=== PATIENT | female | born 1990 | race Caucasian/White ===

== ENCOUNTER → 2016-10-06 | Outpatient (CLI) | payer OTHER ==
[~2016-10-06] MED LIST: BUTA1CAP17 PO; FERR1TAB13 PO; PANT40TA PO; PRENTAB65 PO
== END | disposition home or self-care (01) ==
LOC: C.PATHSPEC 11:05
PROVIDERS: ATTEND Obstetrics & Gynecology
DX: N90.89 Other specified noninflammatory disorders of vulva and perineum (principal)

== ENCOUNTER → 2016-12-07 | Outpatient (CLI) | payer OTHER ==
[2016-12-07 12:20] LABS: COMPLETE YES; EOS % 0.8 %; HEMATOCRIT 39.6 % (37-47); IG% 0.2 %; LYMPH % 35.4 %; LYMPH ABS # 1.82 K/uL (1.2-3.4); MEAN CELL VOLUME 90.8 fL (80-100); MEAN CORPUSCULAR HEMOGLOBIN 32.3 pg (25-34); MEAN CORPUSCULAR HGB CONC 35.6 g/dl (32-36); MEAN PLATELET VOLUME 9.8 fL (7.4-10.4); MONO % 7.2 %; NEUT % 56.4 %; PLATELET COUNT 222 K/uL (130-400); RED BLOOD COUNT 4.36 M/uL (4.2-5.4); WHITE BLOOD COUNT 5.14 K/uL (4.8-10.8)
[2016-12-07 12:51] LABS: CHOLESTEROL/HDL RATIO 2.7
== END | disposition home or self-care (01) ==
LOC: C.LAB1850 11:20
PROVIDERS: ATTEND Family Medicine
DX: Z13.1 Encounter for screening for diabetes mellitus (principal); Z13.220 Encounter for screening for lipoid disorders; Z13.0 Encounter for screening for diseases of the blood and blood-forming organs and certain disorders involving the immune mechanism

== ENCOUNTER → 2017-08-16 | Outpatient (CLI) | payer OTHER | END | disposition home or self-care (01) | LOC: C.PAPS 09:43 | PROVIDERS: ATTEND Obstetrics & Gynecology | DX: Z12.4 Encounter for screening for malignant neoplasm of cervix (principal) ==

== ENCOUNTER → 2018-01-21 | Outpatient (CLI) | payer OTHER ==
[~2018-01-21] MED LIST changes: +OPTIRAY 320 IV PRN; +RANI150T3 PO; +VERA1TAB PO
--- NOTE | 2018-01-21 14:34 | DIAGNOSTIC IMAGING REPORT ---
(CHEST FOR PE) ANGIO WITH CT DOSE: 287.20 mGycm HISTORY: 27 years-old Female with presents with acute atypical right-sided chest pain and pressure. TECHNIQUE: Multiple CTA images of the chest were obtained after the intravenous administration of 94 ml Optiray 320. Coronal and sagittal MIPS were obtained from the axial data set and were submitted for review. A dose lowering technique was utilized adhering to the principles of ALARA. COMPARISON: Chest radiograph 03/11/2012. FINDINGS: CTA: The heart is normal in size without pericardial effusion. Thoracic aorta is normal in both course and caliber without aneurysm or dissection. The imaged great vessels appear patent. The pulmonary arterial tree is opacified to the level of the proximal subsegmental branches and demonstrates no focal filling defects to suggest pulmonary thromboembolic disease. CT CHEST: Homogeneous morphology of the thyroid. Mild residual thymic tissue about the anterior mediastinum. Mildly prominent AP window, paratracheal and right hilar lymph nodes are seen measuring up to 7 mm. No definite pathologically enlarged lymph nodes are identified. Trace left pleural effusion. No pneumothorax. There are numerable scattered pulmonary nodules throughout all segments of the lungs bilaterally measuring up to 2-4 mm are also noted along the fissures bilaterally. Nodules are seen predominantly within a bronchovascular and perilymphatic distribution. No lobar airspace consolidation. Central airways appear patent. Imaged upper abdominal structures are within normal limits. Breast parenchyma and soft tissues are within normal limits. Bones appear to be intact. Dextroscoliosis about the midthoracic spine. IMPRESSION: 1. No acute aortic pathology or evidence of pulmonary thromboembolic disease. 2. Innumerable bilateral pulmonary nodules measuring 2-4 mm throughout all segments of the lungs bilaterally are noted predominantly within a bronchovascular/perilymphatic distribution. Differential considerations would include sarcoidosis which is favored with less likely differential considerations including lymphocytic interstitial pneumonia among other infectious or inflammatory etiologies. 3. Mildly prominent hilar, AP window and subcarinal lymph nodes. The above report was generated using voice recognition software. It may contain grammatical, syntax or spelling errors. Electronically signed by: Rodney Leal M.D. 01/21/2018 2:32 PM Dictated Date/Time: 01/21/2018 2:22 PM
[2018-01-21 16:34] LABS: BASO % 0.3 %; BASO ABS # 0.02 K/uL (0-0.2); EOS % 1.8 %; EOS ABS # 0.14 K/uL (0-0.5); HEMATOCRIT 41.9 % (37-47); HEMOGLOBIN 14.1 g/dL (12.0-16.0); IG# 0.02 K/uL (0.00-0.02); LYMPH % 22.5 %; LYMPH ABS # 1.78 K/uL (1.2-3.4); MEAN CELL VOLUME 90.5 fL (80-100); MEAN CORPUSCULAR HEMOGLOBIN 30.5 pg (25-34); MEAN CORPUSCULAR HGB CONC 33.7 g/dl (32-36); MEAN PLATELET VOLUME 9.3 fL (7.4-10.4); MONO ABS # 0.63 K/uL (0.11-0.59); NEUT % 67.1 %; NEUT ABS # 5.32 K/uL (1.4-6.5); PLATELET COUNT 235 K/uL (130-400); RED CELL DISTRIBUTION WIDTH CV 12.5 % (11.5-14.5); RED CELL DISTRIBUTION WIDTH SD 41.3 fL (36.4-46.3); WHITE BLOOD COUNT 7.91 K/uL (4.8-10.8)
[2018-01-21 17:08] LABS: ALBUMIN 4.2 gm/dl (3.4-5.0); ALKALINE PHOSPHATASE 60 U/L (45-117); ALT/SGPT 19 U/L (12-78); AST/SGOT 13 U/L (15-37); BLOOD UREA NITROGEN 12 mg/dl (7-18); CALCIUM 9.3 mg/dl (8.5-10.1); CARBON DIOXIDE 29 mmol/L (21-32); CREATININE 0.71 mg/dl (0.60-1.20); GLUCOSE 85 mg/dl (70-99); POTASSIUM 3.5 mmol/L (3.5-5.1); SODIUM 135 mmol/L (136-145); TOTAL PROTEIN 8.6 gm/dl (6.4-8.2)
[2018-01-24 11:45] LABS: QUANTIF MITOGEN-NIL 7.95 IU/ML; QUANTIFERON NEGATIVE (NEGATIVE); QUANTIFERON NIL 0.08 IU/ML
[2018-01-27 00:34] LABS: ANA SCREEN TC 249X NEGATIVE (NEGATIVE); ANTI-SS-A <1.0 NEG AI (<1.0 NEG); ANTI-SS-B <1.0 NEG AI (<1.0 NEG); ANTICARDIOLIPID AB IGA <11 APL (< = 11); COMPLEMENT C4** TC 44982E 25 MG/DL (15-57); MICROSOMAL AB 1 IU/ML (<9)
== END | disposition home or self-care (01) ==
LOC: C.CTS 13:45
PROVIDERS: ATTEND Internal Medicine
DX: R91.8 Other nonspecific abnormal finding of lung field (principal); R93.8 Abnormal findings on diagnostic imaging of other specified body structures

== ENCOUNTER → 2018-01-22 | Outpatient (CLI) | payer OTHER ==
[~2018-01-22] MED LIST changes: -OPTIRAY 320 IV PRN
== END | disposition home or self-care (01) ==
LOC: C.LAB 12:34
PROVIDERS: ATTEND Internal Medicine
DX: R93.8 Abnormal findings on diagnostic imaging of other specified body structures (principal)

== ENCOUNTER → 2018-01-27 | Day surgery (SDC) | payer OTHER ==
--- NOTE | 2018-01-26 16:14 | History and Physical ---
History & Physical Date of Service Jan 26, 2018. History & Physical 27-year-old female here for bronchoscopic evaluation of abnormal CT imaging: The week prior to this evaluation the patient woke up on a morning with notable pleuritic chest pain that was radiating to her right neck/apices. At that time she called her PCP and a CT angiogram of the chest was performed. No pulmonary emboli were noted but the patient did have diffuse small ground- glass nodules throughout all lobes as well as a [id number] lymph node/between the takeoff of the right middle lobe and right lower lobe. The patient recently moved into a new house with a hot tub and has been using the hot tub but notes she cleaned it well prior to its use. Also she had a viral type illness for 2-3 day window which was also experience by her . Overall though she has been in excellent physical condition and denies any chronic issues such as: Unintentional weight loss, fever, chills, B type symptoms, chronic cough, hemoptysis, night sweats, palpitations or classic cardiac chest pain. Patient also notes no recurrence of her previous signs and symptoms over the last 2-3 weeks. During our conversation the patient [place] but did not have any notable exposures to coal, would, hay or other known sources of pneumoconiosis. PmHx: Esophageal reflux, migraine headaches, right ovarian cyst status post cystectomy, use of oral contraceptives, former tobacco abuse, hypertension, history of scoliosis PsHx: Adenoidectomy, right ovarian cystectomy Family history: Crohn's disease, breast cancer, Graves disease, hypertension, Parkinson's disease, colon cancer, breast cancer, ovarian cancer, dementia Serum workup Total Protein 01/21/2018: > 8.6gm/dl Globulin 01/21/2018: >4.4gm/dl CRP 01/21/2018: >4.83mg/dl CTA 01/21/2018 No pulmonary emboli noted Innumerable bilateral pulmonary nodules measuring 2-4mm throughout all lung batlazar with a bronchovascular/dennis lymphatic distribution Mildly prominent hilar, AP window and subcarinal lymphadenopathy Review of Systems Constitutional: negative. Eyes: negative. ENT: Chronic postnasal drip, but as noted in HPI. Cardiovascular: negative. Respiratory: as noted in HPI. Gastrointestinal: negative. Genitourinary: negative. Musculoskeletal: negative. Integumentary: negative. Neurological: negative. Psychiatric: negative. Endocrine: negative. Hematologic/Lymphatic: negative. Active Problems 1. Abnormal chest CT (R93.8) 2. Acid reflux (K21.9) 3. Chronic migraine w/o aura w/o status migrainosus, not intractable (G43.709) 4. Contraceptive use (Z30.40) 5. Diabetes mellitus screening (Z13.1) 6. Encounter for routine gynecological examination (Z01.419) 7. Essential hypertension (I10) 8. Fever (R50.9) 9. Lipid screening (Z13.220) 10. Neoplasm of uncertain behavior of skin (D48.5) 11. Night sweats (R61) 12. Pressure in right side of chest (R07.89) 13. Shortness of breath (R06.02) Past Medical History 1. History of Abdominal pain, epigastric (R10.13) 2. History of Abdominal pain, RUQ (right upper quadrant) (R10.11) 3. Acute bronchitis (J20.9) 4. Acute conjunctivitis (H10.30) 5. History of Breast feeding status of mother (Z39.1) 6. History of Costochondritis (M94.0) 7. History of Dysuria (R30.0) 8. History of Encounter for contraceptive management (Z30.9) 9. History of Encounter for lipid screening for cardiovascular disease (Z13.220 ,Z13.6) 10. History of Encounter for visit (Z39.2) 11. History of Encounter for supervision of normal first in third trimester (Z34.03) 12. History of Eustachian tube dysfunction (H69.80) 13. History of Fatigue (R53.83) 14. History of Female pelvic pain (R10.2) 15. History of Female pelvic pain (R10.2) 16. History of acne vulgaris (Z87.2) 17. History of acute otitis media (Z86.69) 18. History of acute pharyngitis (Z87.09) 19. History of acute sinusitis (Z87.09) 20. History of breast pain 21. History of chronic sinusitis (Z87.09) 22. History of closed fracture of nasal bones (Z87.81) 23. History of contact dermatitis (Z87.2) 24. History of dyspareunia 25. History of infectious mononucleosis (Z86.19) 26. History of influenza vaccination (Z92.29) 27. History of ovarian cyst (Z87.42) 28. History of pertussis (Z86.19) 29. History of scarlet fever (Z86.19) 30. History of scoliosis (Z87.39) 31. History of sore throat (Z87.09) 32. History of urinary tract infection (Z87.440) 33. History of Infected incision (T81.4XXA) 34. History of Left foot pain (M79.672) 35. History of Myalgia and myositis 36. History of Nasal Discharge (Symptom) 37. History of Need for DTaP and Hib vaccine (Z23) 38. History of Need for Tdap vaccination (Z23) 39. History of Screening examination for venereal disease (Z11.3) 40. Screening for deficiency anemia (Z13.0) 41. History of Urinary urgency (R39.15) 42. History of Vulvar lesion (N90.89) Surgical History 1. History of Adenoidectomy 2. History of Ovarian Cystectomy Right Family History 1. Family history of Dementia 2. Family history of Hyperlipidemia 3. Family history of Crohn's disease (Z83.79) 4. Family history of Breast Cancer 5. Family history of Graves' Disease 6. Family history of Hypertension 7. Family history of Parkinson Disease 8. Family history of Colon Cancer 9. Family history of Breast Cancer 10. Family history of malignant neoplasm of breast (Z80.3) 11. 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 RaNITidine HCl - 150 MG Oral Tablet; TAKE 1 TABLET EVERY 12 HOURS DAILY Requested for: 14Dec2017; Last Rx:14Dec2017 Ordered 2. Azmgglrjzp-NSIC-Pmrtdmvn 50-325-40 MG Oral Tablet; TAKE 1 OR 2 TABLETS BY MOUTH EVERY 4 HOURS NEEDED FOR HEADACHE MAX 6 TABS/DAY; Therapy: 16Mde9122 to (Evaluate:20Nov2017) Requested for: 23Jul2017; Last Rx:[id number] Ordered 3. Verapamil HCl ER 180 MG Oral Tablet Extended Release; TAKE 1 TABLET DAILY DIRECTED; Therapy: 28Aug2016 to (Evaluate:24Feb2018) Requested for: 01Mar2017; Last Rx:01Mar2017 Ordered 4. Norethindrone 0.35 MG Oral Tablet; TAKE ONE TABLET BY MOUTH EVERY DAY; Therapy: 26Jun2016 to (Last Rx:16Aug2017) Requested for: 16Aug2017 Ordered 5. Naproxen TABS; Therapy: (Recorded:26Jun2016) to Recorded 6. Tylenol CAPS; Therapy: (Recorded:03Oct2015) to Recorded Allergies 1. Imitrex TABS 2. ALEJANDRO TABS 3. Propranolol HCl TABS Immunizations DTP/DTaP --- Series1: 28-Feb-1990; Series2: 16-May-1990; Series3: 18-Jul-1990; Series4: 27-Feb-1991; Series5: 18-Dec-1994 Hepatitis B --- Series1: 29-May-1998; Series2: 09-Jul-1998; Series3: 1998 HIB --- Series1: 16-Jun-1990; Series2: 29-Aug-1990; Series3: 27-Feb-1991 HPV --- Series1: 21-Feb-2009; Series2: 25-Apr-2009 Influenza --- Series1: 21-Mar-2011; Series2: Mar 2012; Series3: 03-Apr-2013; Series4: 03-Apr-2014; Series5: 12-Mar-2016 Meningococcal A & C --- Series1: 28-Dec-2006 MMR --- Series1: 27-Feb-1991; Series2: 18-Dec-1994 Polio --- Series1: 28-Feb-1990; Series2: 18-Jul-1990; Series3: 04-Apr-1991; Series4: 18-Dec-1994 PPD --- Series1: 18-Dec-1994; Series2: 17-Oct-2007 Td/DT --- Series1: 23-Aug-2002 Tdap --- Series1: 12-Mar-2016 Varicella --- Series1: 30-Aug-1995 Vital Signs Height: 5 ft 6 in Weight: 135 lb 4 oz BMI Calculated: 21.83 BSA Calculated: 1.69 Blood Pressure: 124 / 86, LUE, Sitting Heart Rate: 79 O2 Saturation: 98 Respiration: 14 Physical Exam Constitutional General appearance: No acute distress, well appearing and well nourished. Eyes Conjunctiva and lids: No swelling, erythema or discharge. Pupils and irises: Equal, round and reactive to light. Ears, Nose, Mouth, and Throat External inspection of ears and nose: Normal. Otoscopic examination: Tympanic membranes translucent with normal light reflex. Canals patent without erythema. Oropharynx: Normal with no erythema, edema, exudate or lesions. Pulmonary Respiratory effort: No increased work of breathing or signs of respiratory distress. Auscultation of lungs: Clear to auscultation. Cardiovascular Palpation of heart: Normal PMI, no thrills. Auscultation of heart: Normal rate and rhythm, normal S1 and S2, without murmurs. Examination of extremities for edema and/or varicosities: Normal. Abdomen Abdomen: Non-tender, no masses. Liver and spleen: No hepatomegaly or splenomegaly. Lymphatic Palpation of lymph nodes in neck: No lymphadenopathy. Musculoskeletal Gait and station: Normal. Digits and nails: Normal without clubbing or cyanosis. Inspection/palpation of joints, bones, and muscles: Normal. Skin Skin and subcutaneous tissue: Normal without rashes or lesions. Neurologic Cranial nerves: Cranial nerves 2-12 intact. Reflexes: 2+ and symmetric. Sensation: No sensory loss. Psychiatric Orientation to person, place, and time: Normal. Mood and affect: Normal.
[~2018-01-27] VITALS: Ht 167.6 cm; Wt 60.5 kg
[~2018-01-27] MED LIST changes: +DEXTROSE 5% 500ML 500 ML IV STA; +FENTANYL CITRATE INJ 50 MCG/1 ML 2 ML VIAL IV ONE; +LIDOCAINE 4% INH SOLN 4 ML BTL TOP ONE; +LIDOCAINE HCL 2% LOCAL 50ML VIAL INSTIL ONE; +LIDOCAINE VISCOUS 2% 100ML TOP ONE; +MIDAZOLAM HCL 5 MG/ML 1 ML VIAL IV ONE; +NURSING VERBAL MED ORDER ONE
[2018-01-27 08:58] VITALS: BP 122/86; PULSE 88; TEMP 37.1; O2SAT 97; Ht 167.6 cm; Wt 60.5 kg
--- NOTE | 2018-01-27 09:50 | History & Physical Bridge Note ---
H&P Re-Evaluation Bridge Note: I have examined the patient, reviewed the History & Physical and in the interval since the performance of the History & Physical I have noted the following changes of clinical significance: No changes noted
--- NOTE | 2018-01-27 09:50 | Pre Sedation Assessment ---
Pre Sedation Assessment General Date of Sedation: Jan 27, 2018. Vital Signs Past 12 Hours Date Time Temp Pulse Resp B/P (MAP) Pulse Ox O2 Delivery O2 Flow Rate FiO2 01/27/18 08:58 37.1 88 16 122/86 (98) 97 Room Air Review Cardiovascular: regular rate, rhythm, no edema, no gallop, no JVD, no murmur, normal peripheral pulses Lungs: chest non-tender, lungs clear, normal breath sounds, no respiratory distress, no accessory muscle use Pre-Sedation Airway Assessment Smoking Status: Former Smoker Hx of Sleep Apnea: No Short Thick Neck: No Thyro-mental Distance: > 3 Finger Breadths Oral Cavity: WNL Mallampati Classification: Class I ASA Classification: Class I NPO Status Date of Last Intake of Fluids: Jan 27, 2018 Time of Last Intake of Fluids: 0630 Date of Last Intake of Solids: Jan 26, 2018 Time of Last Intake of Solids: 1900 Procedure Planning Contraindications for Sedation: None Current Medications Reviewed: Yes Notes The planned sedation has been discussed with the patient. Informed Consent was obtained. I have identified the patient, determined the appropriateness of sedation and have assessed the patient immediately prior to the procedure. All medicine(s) and interventions are by my order.
--- NOTE | 2018-01-27 10:38 | Bronchoscopy Procedure Note ---
Bronchoscopy Procedure Note Procedure: Bronchoscopy, conscious sedation, radial probe, bronchial washing Consent: Obtained through the patient placed into the chart Pre-procedural diagnosis: Pulmonary nodules with hilar adenopathy Post-procedural diagnosis: Pulmonary nodules with hilar adenopathy Start time: 1011 End time: 103 Total time: 19minutes Analgesia: 2% liquid lidocaine: Via nebulizer 4% gel lidocaine: Via right naris 2% liquid lidocaine: Via bronchoscopy Sedation: Versed IV: 3mg Fentanyl IV: 75g Procedure: The Olympus video bronchoscope was used for this procedure and passed down through the right naris Right naris/posterior naris/posterior oropharynx: Diffuse erythema along with notable cobblestoning along the posterior oropharynx Glottis: Anatomically within normal limits Vocal cords: Proper abduction and abduction, anatomically within normal limits Subglottis/trachea/Lexx: Anatomically within normal limits Right bronchial tree: Right mainstem bronchus: Anatomically within normal limits Right upper lobe: Anatomically within normal limits Bronchus intermedius: Anatomically within normal limits Right middle lobe: Anatomically within normal limits Right lower lobe: Anatomically within normal limits Findings: No significant findings noted Left bronchial tree: Left mainstem bronchus: Anatomically within normal limits Left upper lobe: Anatomically within normal limits Lingula: Anatomically within normal limits Left lower lobe: Anatomically within normal limits Findings: No significant findings noted Bronchial alveolar lavage: Left lower lobe Radial probe: Performed at the secondary lexx between the right middle lobe and right lower lobe. No significant findings noted EBL: None Complications: None Follow-up: ASU
--- NOTE | 2018-01-27 10:42 | Discharge Instructions ---
Discharge Instructions Date of Service Jan 27, 2018. Admission Reason for Admission: Abnormal Chest Ct Discharge Discharge Diagnosis / Problem: Diffuse pulmonary nodules Discharge Goals Goal(s): Diagnostic testing Activity Recommendations Activity Limitations: resume your previous activity Lifting Limitations: none Driving or Machine Use: resume 1 day after discharge . Instructions / Follow-Up Instructions / Follow-Up Follow-up with the [facility] pulmonary clinic Current Hospital Diet Patient's current hospital diet: Discharge Diet Recommended Diet: Regular Diet Procedures Procedures Performed: Bronchoscopy with Bronchial Alveolar Lavage, radial probe at the secondary lexx between the right middle lobe and right lower lobe Pending Studies Studies pending at discharge: no Medical Emergencies . Who to Call and When: Medical Emergencies: If at any time you feel your situation is an emergency, please call 911 immediately. . Non-Emergent Contact Non-Emergency issues call your: Balance Wheel Screw Hole Driller Call Non-Emergent contact if: you have a fever, temperature is above 101.5 . . "Provider Documentation" section prepared by Andre Eng. .
[2018-01-27 10:50] VITALS: BP 133/96; TEMP 37.1; O2SAT 100
[2018-01-27 11:06] VITALS: BP 125/86; PULSE 75; O2SAT 99
[2018-01-27 11:24] VITALS: BP 115/81; PULSE 67; O2SAT 99
[2018-01-27 12:05] VITALS: BP 112/75; PULSE 77; O2SAT 98
[2018-01-27 12:29] VITALS: BP 119/82; PULSE 75; TEMP 36.8; O2SAT 95
== END | disposition home or self-care (01) ==
LOC: C.ACU 08:31
PROVIDERS: ATTEND Internal Medicine Critical Care Medicine
DX: R91.1 Solitary pulmonary nodule (principal); K21.9 Gastro-esophageal reflux disease without esophagitis; Z79.3 Long term (current) use of hormonal contraceptives; Z87.891 Personal history of nicotine dependence; I10 Essential (primary) hypertension

== ENCOUNTER → 2018-01-28 | Outpatient (CLI) | payer OTHER ==
[~2018-01-28] MED LIST changes: -DEXTROSE 5% 500ML 500 ML IV STA; -FENTANYL CITRATE INJ 50 MCG/1 ML 2 ML VIAL IV ONE; -FERR1TAB13 PO; -LIDOCAINE 4% INH SOLN 4 ML BTL TOP ONE; -LIDOCAINE HCL 2% LOCAL 50ML VIAL INSTIL ONE; -LIDOCAINE VISCOUS 2% 100ML TOP ONE; -MIDAZOLAM HCL 5 MG/ML 1 ML VIAL IV ONE; -NURSING VERBAL MED ORDER ONE; -PANT40TA PO; -PRENTAB65 PO
--- NOTE | 2018-01-28 11:46 | DIAGNOSTIC IMAGING REPORT ---
CHEST 2 VIEWS ROUTINE CLINICAL HISTORY: R07.9 Left sided chest [id number] pain. Dyspnea. COMPARISON STUDY: No previous studies for comparison. FINDINGS: Poorly defined parenchymal infiltrate left lung base. Lungs otherwise are clear. Diaphragms smooth. IMPRESSION: Poorly defined parenchymal infiltrate left base. The above report was generated using voice recognition software. It may contain grammatical, syntax or spelling errors. Electronically signed by: Candelario Obando M.D. 01/28/2018 11:45 AM Dictated Date/Time: 01/28/2018 11:45 AM
== END | disposition home or self-care (01) ==
LOC: C.RAD 11:10
PROVIDERS: ATTEND Internal Medicine Critical Care Medicine
DX: R07.9 Chest pain, unspecified (principal)

== ENCOUNTER 2020-03-29 07:41 | Inpatient (IN) ==
[2020-03-29] MEDS ORDERED: OXYTOCIN 30 UNITS/500 ML BAG IV PRN ×3 (08:09→21:17)
--- NOTE | 2020-03-29 08:16 | History & Physical Report ---
Date of Service March 29, 2020 Assessment & Plan (1) : Reena is a 29 y/o female currently at 37-1/7 WGA with an ANDI 04/18/20 as determined by LMP who is here for planned IOL in setting of gestational HTN. - Proceed with IOL with Pitocin protocol -- anticipate - GBS negative - Patient requesting epidural -- will consult anesthesia - -induced HTN - Regular BP checks - PIH labs ordered Diet: NPO Code: Full code (2) Gestational HTN: Admission and Anticipated Discharge Date Admission Date: March 29, 2020 History of Present Illness Primary Care Provider: Sulma Solano MD Reena is a 29 y/o female currently at 37-1/7 WGA with an ANDI 04/18/20 as determined by LMP who is here for planned IOL in setting of gestational HTN. Her was otherwise uncomplicated Denies contractions; endorses good movement; denies fluid loss; denies bloody show Had regular appointments with OB. Labs: (09/12/19) Blood type: A+ Antibody screen: neg H.1 (03/20) Hct: 38.6 (03/20) WBC: 12.4 (03/20) Plt: 232 (03/20) Rubella: immune VDRL/RPR: NR Gonorrhea: neg Chlamydia: neg HIV: neg HbSAg: neg GBS: neg SARS-CoV-2 (03/22): Not detected Other screens: cff-DNA: low risk (see scanned documents) CF: negative SMA: negative Allergies Allergy/AdvReac Type Severity Reaction Status Date / Time drospirenone Allergy Mild HTN Verified 03/29/20 09:21 ethinyl estradiol Allergy Mild HTN Verified 03/29/20 09:21 sumatriptan Allergy Mild HTN Verified 03/29/20 09:21 Imitrex TABS Allergy Mild Hypertensio Uncoded 03/29/20 09:21 n Propranolol HCl TABS Allergy Unknown Unknown Uncoded 03/29/20 09:21 ALEJANDRO TABS Allergy Unknown Unknown Uncoded 03/29/20 09:21 Home Medications Home Medications Medication Instructions Recorded Confirmed Type prenat.vits,tim,aif-slcc-iqige 1 tab PO DAILY 08/15/19 03/29/20 History aspirin 81 mg chewable tablet 81 mg PO DAILY 10/10/19 03/29/20 History ondansetron HCl 4 mg tablet 4 mg PO Q8H PRN #30 tab 12/11/19 03/29/20 Rx pantoprazole 40 mg tablet,delayed 40 mg PO DAILY #90 tab 01/10/20 03/29/20 Rx release Patient History Medical History Chronic migraine Encounter for anatomic survey GERD (gastroesophageal reflux disease) Hypertension Migraine Migraine without aura, not intractable, without status migrainosus Surgical History History of adenoidectomy History of ovarian cystectomy Family History (Updated 09/05/19 @ 14:06 by Stephany Ye) Aunt Breast cancer Grandmother (Paternal) Breast cancer Graves disease Grandfather (Paternal) Colorectal cancer Hypertension Parkinson disease Father Dementia Dyslipidemia Grandmother (Maternal) Crohn's disease Social History (Updated 09/05/19 @ 13:45 by Stephany Ye) Smoking Status: Former smoker Second Hand Exposure: No; Hx Alcohol Use: No Hx Substance Use: No Preferred Language: Filipino Communication Ability: Effective Beliefs That Will Affect Care: None marital status: marital status details: Aurelio CORONADO" Iglesia (31) [phone] Current Living Situation: Family Current Living Situation Comment: lives with spouse and daughter, 1 dog current occupational status: employed Other Information That Helps Us Care for You: No Feels Safe at Home: Yes Safety Concerns: Feels Safe At This Time Assistive Devices: None Review of Systems no fever, no chills and no sweats denies headache no dyspnea no chest pain, no dyspnea, no dyspnea at rest and no palpitations no dysuria no breast pain Physical Exam Physical Exam: General: Alert, oriented. No acute distress. Cardiac: Regular rate and rhythm, no murmurs/rubs/gallops. Respiratory: Clear to auscultation bilaterally a/p, no wheezes/rales/rhonchi. No increased work of breathing. Symmetrical chest rise. No respiratory distress. Pelvic: Dilation 2.5 cm; Effacement 75%; Station -[address] Gauthier Lower Extremities: No lower extremity edema or swelling. No deep calf pain. Mirna's negative bilaterally Results & Data ([facility]) Vital Signs (Past 12 Hours) Vital Signs Pulse BP 03/29/20 07:54 85 134/88 Supervising Physician Co-Signing Physician Notes Resident Physician Supervision Note: I interviewed and examined the patient. Discussed with Dr. Arguello and agree with findings and plan as documented in the note. Any exceptions or clarifications are listed here: +FM; -ctx, LOF, VB. No s/s pre-eclampsia, labs wnl on admission except UPC P. SVE by Dr. Gauthier, EFW 7-8lbs. Start IOL with oxytocin Documented By: Cheryl Baker MD Resident Activity Tracking Resident Involvement: Resident Care Provided Care Provided: Adult Hospital Medicine and OB Delivery
[2020-03-29 08:45] LABS: Hematocrit (blood only) 35.3 % (37-47); Hemoglobin 12.1 g/dL (12.0-16.0); Mean Corpuscular Hemoglobin 31.8 pg (25-34); Mean Corpuscular Volume 92.7 fL (80-100); Mean Platelet Volume 9.7 fL (7.4-10.4); Platelet Count 177 K/uL (130-400); RDW Standard Deviation 43.6 fL (36.4-46.3); Red Blood Count 3.81 M/uL (4.2-5.4); White Blood Count 9.27 K/uL (4.8-10.8)
[2020-03-29] MEDS: LACTATED RINGER'S 1,000 ML IV PRN ×3 (08:49→19:05)
[2020-03-29 09:16] LABS: Albumin Level 2.6 gm/dl (3.4-5.0); BUN Creatinine Ratio 15.3 (10-20); Calcium 8.8 mg/dl (8.5-10.1); Creatinine Clr Calc Pharmacy 131.3 ml/min; Est GFR (African American) 134.8; Est GFR (Non-African American) 116.3; Potassium 3.3 mmol/L (3.5-5.1)
[2020-03-29 09:19] LABS: Albumin Globulin Ratio 0.6 (0.9-2); Bilirubin,Total 0.5 mg/dl (0.2-1); Globulin 4.3 gm/dl (2.5-4.0); Total Protein 6.9 gm/dl (6.4-8.2)
[2020-03-29 09:26] LABS: Mean Corpuscular Hgb Conc 34.3 g/dL (32-36)
[2020-03-29 12:04] LABS: Protein Creatinine Ratio Urine 0.3 (0-0.2); Total Protein Urine Random 13.6 mg/dl (0-11.9)
--- NOTE | 2020-03-29 13:05 | Labor Progress Brief Note ---
Date of Service March 29, 2020 Subjective Resting comfortably. Notes contractions are a little uncomfortable but significantly painful Assessment & Plan (1) : (2) Gestational HTN: UPC 0.3, now meets criteria for pre-eclampsia w/o SF. Discussed with pt, will continue to monitor Admission and Anticipated Discharge Date Admission Date: March 29, 2020 VSS, BPs wnl Fetus cat 1 Labor - pit at 9, will recheck and arom with more consistent pattern GBS neg Epidural PRN, pt would like before AROM Physical Exam 2 Constitutional: well developed Genitourinary: OB Exam Monitor Tracing: + external FHT monitor used, + external uterine monitor used (q5min) and + category I (120/mod/+accel/-decel) Results & Data ([facility]) Vital Signs (Past 12 Hours) Vital Signs Temp Pulse Resp BP 03/29/20 12:03 97.9 F 68 20 126/78 03/29/20 10:52 68 18 127/74 03/29/20 07:54 85 134/88 03/29/20 07:52 98.8 F 85 20 134/88 Coding Level of Care Code None Diagnoses Z34.90 Gestational HTN O13.9
[2020-03-29] MEDS ORDERED: ePHEDrine sulfate 50 MG/ML AMP ONE (15:07)
[2020-03-29] MEDS ORDERED: fentaNYL citrate 100 MCG/2 ML VIAL ONE (15:07)
[2020-03-29] MEDS ORDERED: BUPIVACAINE 0.25% 30 ML VIAL ONE (15:07)
[2020-03-29] MEDS ORDERED: fentaNYL 2MCG/ML ROPIVACAINE 1.25MG/ML 100 ML BAG EPI ONE (15:07)
[2020-03-29] MEDS ORDERED: diphenhydrAMINE 50 MG/ML VIAL IV PRN (15:12)
[2020-03-29] MEDS ORDERED: fentaNYL 2MCG/ML ROPIVACAINE 1.25MG/ML 100 ML BAG EPI PRN (15:12)
[2020-03-29] MEDS ORDERED: NALOXONE HCL 1 MG in SODIUM CHLORIDE 0.9% 1000ML 1,000 ML IV PRN (15:12)
[2020-03-29] MEDS ORDERED: ePHEDrine sulfate 50 MG/ML AMP IV PRN (15:12)
[2020-03-29] MEDS ORDERED: ONDANSETRON INJ 2 MG/ML 2 ML VIAL IV PRN (15:12)
[2020-03-29] MEDS ORDERED: NALOXONE HCL 0.4 MG/1 ML VIAL/CARP IV PRN (15:12)
--- NOTE | 2020-03-29 15:14 | Anesthesiology Consultation ---
Date of Service March 29, 2020 Assessment & Plan (1) Encounter for pre-operative examination: Chart Review Chart Review: Patient NOT seen in Pre Admission Testing and Acceptable Risk for Labor Epidural Consults Requested none covid neg 03/22/2020. History Height/Weight Height: 5 ft 6 in Weight: 87.997 kg Allergies Allergy/AdvReac Type Severity Reaction Status Date / Time drospirenone Allergy Mild HTN Verified 03/29/20 09:21 ethinyl estradiol Allergy Mild HTN Verified 03/29/20 09:21 sumatriptan Allergy Mild HTN Verified 03/29/20 09:21 Imitrex TABS Allergy Mild Hypertensio Uncoded 03/29/20 09:21 n Propranolol HCl TABS Allergy Unknown Unknown Uncoded 03/29/20 09:21 ALEJANDRO TABS Allergy Unknown Unknown Uncoded 03/29/20 09:21 Medications Home Medications Medication Instructions Recorded Confirmed Last Taken prenat.vits,tim,mle-ujzb-kyamf 1 tab PO DAILY 08/15/19 03/29/20 03/28/20 20:00 aspirin 81 mg chewable tablet 81 mg PO DAILY 10/10/19 03/29/20 03/28/20 20:00 ondansetron HCl 4 mg tablet 4 mg PO Q8H PRN #30 tab 12/11/19 03/29/20 Unknown pantoprazole 40 mg tablet,delayed 40 mg PO DAILY #90 tab 01/10/20 03/29/20 Unknown release Active Medications Generic Name Dose Route Start Last Admin Trade Name Freq PRN Reason Stop Dose Admin Lactated Ringer's 1,000 mls @ 125 mls/hr 03/29/20 08:09 03/29/20 15:09 Lr IV 03/31/20 08:08 999 mls/hr .Q8H PRN Administration L&D Protocol Protocol Oxytocin 30 units in 500 mls @ 17 mls/hr 03/29/20 09:49 03/29/20 15:15 Pitocin IV 03/31/20 09:48 1.02 units/hr .Q24H PRN 17 mls/hr Labor Induction/Augmentation Titration Protocol 1.02 UNITS/HR Past Medical History Medical History Chronic migraine Encounter for anatomic survey GERD (gastroesophageal reflux disease) Hypertension Migraine Migraine without aura, not intractable, without status migrainosus Exercise / Class Metabolic Activity II 4-5 Yardwork/Stairs/Walk up hill Past Family History Family History Aunt Breast cancer Grandmother (Paternal) Breast cancer Graves disease Grandfather (Paternal) Colorectal cancer Hypertension Parkinson disease Father Dementia Dyslipidemia Grandmother (Maternal) Crohn's disease Past Surgical History Surgical History History of adenoidectomy History of ovarian cystectomy Past Anesthesia History No Hx of Anesthesia Complications and No Family Hx of Anesthesia Complications History of PONV No Hx of PONV and No Hx of Motion Sickness Social History Smoking Status: Former smoker Do You Dip or Chew Tobacco: No Hx Alcohol Use: No Hx Substance Use: No substance use type: does not use Physical Exam Vital Signs Last Vital Signs Temp 36.6 C 03/29/20 12:03 Pulse 77 03/29/20 15:37 Resp 20 03/29/20 12:03 BP 129/86 03/29/20 13:30 Pulse Ox 99 03/29/20 15:37 Testing Laboratory Results 03/29/20 08:26 03/29/20 08:26
--- NOTE | 2020-03-29 15:18 | Labor Progress Brief Note ---
Date of Service March 29, 2020 Subjective Contractions noticeable, more regular Assessment & Plan (1) : (2) Pre-eclampsia: Admission and Anticipated Discharge Date Admission Date: March 29, 2020 VSS, BPs wnl Fetus cat 1 Labor - pit at 15, continue augmentation GBS neg epidural - plan to get now so that can AROM Physical Exam Constitutional: well developed Genitourinary: Manual OB Exam: + cervical dilation 3 cm, + cervical effacement 70% and + station -2 OB Exam Monitor Tracing: + external FHT monitor used, + external uterine monitor used (q4min) and + category I (120/mod/+accel/-decel) Results & Data ([facility]) Vital Signs (Past 12 Hours) Vital Signs Temp Pulse Resp BP 03/29/20 13:30 71 129/86 03/29/20 12:03 97.9 F 68 20 126/78 03/29/20 10:52 68 18 127/74 03/29/20 07:54 85 134/88 03/29/20 07:52 98.8 F 85 20 134/88 Coding Level of Care Code None Diagnoses Z34.90 Pre-eclampsia O14.90
--- NOTE | 2020-03-29 17:01 | Labor Progress Brief Note ---
Date of Service March 29, 2020 Subjective Resting with epidural Assessment & Plan (1) : VSS, BPs wnl Fetus cat 1 Labor - pit at 17, now s/p AROM. continue augmentation GBS neg epidural in place (2) Pre-eclampsia: BPs wnl Admission and Anticipated Discharge Date Admission Date: March 29, 2020 Physical Exam Constitutional: well developed Genitourinary: Manual OB Exam: + cervical dilation (3-4), + cervical effacement 80%, + station -1 and + amniotic fluid (AROM) clear OB Exam Monitor Tracing: + external FHT monitor used, + external uterine monitor used (q3-4min) and + category I (120/mod/+accel/-decel) Results & Data ([facility]) Vital Signs (Past 12 Hours) Vital Signs Temp Pulse Resp BP Pulse Ox 03/29/20 16:52 87 97 03/29/20 16:47 86 99 03/29/20 16:46 67 115/66 03/29/20 16:42 79 98 03/29/20 16:40 68 111/65 03/29/20 16:37 75 98 03/29/20 16:36 70 113/83 03/29/20 16:32 75 98 03/29/20 16:30 68 128/73 03/29/20 16:27 81 98 03/29/20 16:26 73 120/74 03/29/20 16:22 68 97 03/29/20 16:20 71 115/69 03/29/20 16:17 69 98 03/29/20 16:15 98.8 F 67 18 119/75 03/29/20 16:12 75 99 03/29/20 16:09 70 119/72 03/29/20 16:07 75 98 03/29/20 16:05 68 119/72 03/29/20 16:02 73 98 03/29/20 16:00 69 135/68 03/29/20 15:57 71 98 03/29/20 15:54 70 124/74 03/29/20 15:52 83 132/87 99 03/29/20 15:50 80 127/77 03/29/20 15:48 71 119/79 03/29/20 15:47 74 99 03/29/20 15:46 75 120/73 03/29/20 15:44 68 126/77 03/29/20 15:42 76 124/76 100 03/29/20 15:37 77 99 03/29/20 15:36 83 91 03/29/20 15:32 77 100 03/29/20 15:27 91 H 99 03/29/20 13:30 71 129/86 03/29/20 12:03 97.9 F 68 20 126/78 03/29/20 10:52 68 18 127/74 03/29/20 07:54 85 134/88 03/29/20 07:52 98.8 F 85 20 134/88 Coding Level of Care Code None Diagnoses Z34.90 Pre-eclampsia O14.90
[2020-03-29] MEDS ORDERED: MINERAL OIL 30 ML UDC ONE (20:38)
[2020-03-29] MEDS ORDERED: BENZOCAINE 20% AER SPR 82.5 GM CAN EXT PRN (21:17)
[2020-03-29] MEDS ORDERED: SUPERCREAM 0.870% 15 GM JAR EXT PRN (21:17)
[2020-03-29] MEDS ORDERED: HYDROCORTISONE ACETATE 25 MG SUPP PR PRN (21:17)
[2020-03-29] MEDS ORDERED: bisacodyL 10 MG SUPP PR PRN (21:17)
--- NOTE | 2020-03-29 21:18 | Delivery Summary ---
Vaginal Delivery Summary Date of Service March 29, 2020 PREOPERATIVE DIAGNOSIS: 1. Single intrauterine at 37 and 1/7 weeks gestation 2. Pre-eclampsia without severe features POSTOPERATIVE DIAGNOSIS: 1. Single intrauterine at 37 and 1/7 weeks gestation 2. Pre-eclampsia without severe features 3. Delivered PROCEDURE: 1. Normal spontaneous vaginal delivery. SURGEON: Cheryl Baker MD ANESTHESIA: Epidural. ESTIMATED BLOOD LOSS: 300 mL FLUIDS: Continuous LR. URINE OUTPUT: None. COMPLICATIONS: None. CONDITION: Stable. INDICATIONS: 29 y/o at 37w1d w/ ANDI 04/18/20 by LMP presents for IOL for gHTN. No complaints on arrival. Admission HTN labs were obtained and wnl except elevated UP:C giving dx of pre-eclampsia w/o SF. Induction was begun with oxytocin. She received an epidural for pain control. Artificial rupture of membranes was performed. She then progressed to 10/100/+3 FINDINGS: A viable male infant with weight pending at time of note, with Apgars of 9 and 10 at 1 and 5 minutes respectively. SPECIMEN: Placenta. OPERATIVE REPORT: The patient progressed to 10 cm, 100% effaced and +2 station, pushed over intact perineum with anesthesia to deliver a viable male , weight and Apgars as above. Head of delivered in EVELINA position. No nuchal cord was present. Body and shoulders were delivered without difficulty. was delivered to maternal abdomen and nursing staff. Delayed cord clamping was performed for 60 seconds. Cord was clamped and cut. Cord blood was obtained. Placenta delivered spontaneously intact with 3-vessel cord. IV oxytocin and fundal massage were given for excellent hemostasis. Vagina, cervix, placenta and perineum were inspected. A second degree laceration was noted and repaired in the usual fashion with 3-0 Vicryl. Sponge and needle counts correct x2. No sponges were left behind. Mother and stable in immediate period.
--- NOTE | 2020-03-29 21:49 | Anesthesia Procedure Note ---
Date of Service March 29, 2020 Anesthesia Post Epidural Note Vital Signs Vital Signs: Temp Pulse Resp BP Pulse Ox 36.8 C 78 18 121/73 97 03/29/20 19:15 03/29/20 21:38 03/29/20 19:15 03/29/20 21:38 03/29/20 21:22 Pain Intensity Bilateral Abdomen: Pain Intensity: 9 Notes Mental Status: alert / awake / arousable and participated in evaluation Patient Amnestic to Procedure: No Nausea / Vomiting: adequately controlled Pain: adequately controlled Airway Patency, RR, SpO2: stable & adequate BP & HR: stable & adequate Hydration State: stable & adequate Neuraxial Anesthesia: was administered and sensory block is resolving Anesthetic Complications: no major complications apparent and Pt Satisfied with anesthetic care Epidural: Removed without complications and With tip intact
[2020-03-30] MEDS: IBUPROFEN 600 MG TAB PO PRN ×4 (01:20→23:47)
--- NOTE | 2020-03-30 05:53 | Obstetrical Progress Note ---
Date of Service <Michael Arguello MD - Last Filed: 03/30/20 07:20> March 30, 2020 Assessment & Plan <Michael Arguello MD - Last Filed: 03/30/20 07:20> (1) Spontaneous vaginal delivery: Reena is a 29 y/o female who is now PPD #1 following planned IOL for gHTN (subsequently found to meet criteria for preeclampsia w/o severe features while here based on urine protein/Cr of 0.3) at 37-1/7 weeks. Preeclampsia without Severe Features - Patient previously defined as gestational HTN throughout her course, subsequently found to meet criteria for preeclampsia w/o severe features while here based on urine protein/creatinine of 0.3 - PIH labs obtained at admission otherwise WNL - BPs have remained stable in the 110-130/70-80 range while here - Continue to monitor BPs while here - Will require 1 week f/u / BP check -- clerical staff messaged - Feels well today. Eating well, voiding well, ambulating well. - Pain well controlled with ibuprofen 600mg Q4H PRN. - Routine care -- promote OOB, ambulation, diet progression as tolerated - After discharge will have [address] Olivia Dorantes: Anticipate staying through [facility] for BP monitoring in setting - anticipate d/c tomorrow Code: Full code Subjective <Mihcael Arguello MD - Last Filed: 03/30/20 07:20> Reena is a 29 y/o female who is now PPD #1 following planned IOL for gHTN (subsequently found to meet criteria for preeclampsia w/o severe features while here based on urine protein/Cr of 0.3) at 37-1/7 weeks. Reports feeling well overall this morning. Endorses some abdominal cramping with pain well managed on analgesics. Voiding without difficulty. Tolerating meals well and able to ambulate some. Endorses passing gas but not yet BMs. Some persistent lochia with some improvement this morning. Bottle feeding well. Review of Systems Denies fever, chills, sweats Denies shortness of breath, difficulty breathing, chest pain, palpitations, chest pressure. Denies breast pain. Denies dysuria. Denies headache or changes in vision. Physical Exam <Michael Arguello MD - Last Filed: 03/30/20 07:20> General: Alert, oriented. No acute distress. Cardiac: Regular rate and rhythm, no murmurs/rubs/gallops. Respiratory: Clear to auscultation bilaterally a/p, no wheezes/rales/rhonchi. No increased work of breathing. Symmetrical chest rise. No respiratory distress. Abdomen: Soft, nontender, nondistended. Bowel sounds present. Uterus: Uterine fundus firm, palpable 2 cm below umbilicus. Lower Extremities: No lower extremity edema or swelling. No deep calf pain. Mirna's negative bilaterally. Results & Data ([facility]) <Michael Arguello MD - Last Filed: 03/30/20 07:20> Vital Signs (Past 12 Hours) Vital Signs Temp Pulse Pulse Resp BP BP Pulse Ox 03/30/20 04:15 36.5 C 61 18 122/83 03/29/20 23:30 36.6 C 74 18 137/84 03/29/20 23:07 86 116/71 03/29/20 22:52 79 114/66 03/29/20 22:37 78 115/73 03/29/20 22:22 80 119/77 03/29/20 22:07 81 122/79 03/29/20 21:53 83 119/79 03/29/20 21:38 78 121/73 03/29/20 21:23 78 139/89 03/29/20 21:22 79 97 03/29/20 21:17 67 97 03/29/20 21:12 68 97 03/29/20 21:07 69 122/82 97 03/29/20 21:02 75 98 03/29/20 20:57 71 98 03/29/20 20:52 74 97 03/29/20 20:47 76 120/56 L 98 03/29/20 20:42 79 98 03/29/20 20:37 80 100 03/29/20 20:33 80 123/76 03/29/20 20:32 83 99 03/29/20 20:27 66 99 03/29/20 20:22 83 99 03/29/20 20:17 71 131/86 98 03/29/20 20:12 68 98 03/29/20 20:07 76 99 03/29/20 20:02 71 117/74 96 03/29/20 19:57 68 98 03/29/20 19:52 69 96 03/29/20 19:47 68 117/73 96 03/29/20 19:42 71 97 03/29/20 19:37 70 98 03/29/20 19:33 64 119/73 03/29/20 19:32 67 97 03/29/20 19:27 66 95 03/29/20 19:22 71 96 03/29/20 19:18 67 127/79 03/29/20 19:17 67 97 03/29/20 19:15 36.8 C 18 03/29/20 19:12 65 97 03/29/20 19:07 69 98 03/29/20 19:03 73 121/71 03/29/20 19:02 78 98 03/29/20 18:57 70 98 03/29/20 18:52 70 97 03/29/20 18:48 68 111/71 03/29/20 18:47 68 96 03/29/20 18:42 70 97 03/29/20 18:37 72 97 03/29/20 18:32 70 128/79 98 03/29/20 18:27 78 97 03/29/20 18:22 81 98 03/29/20 18:17 67 115/72 96 03/29/20 18:12 72 97 03/29/20 18:07 83 97 03/29/20 18:02 66 20 114/71 97 03/29/20 17:57 68 97 03/29/20 17:52 70 97 <Cheryl Baker MD - Last Filed: 03/30/20 09:18> Co-Signing Physician Notes Resident Physician Supervision Note: I interviewed and examined the patient. Discussed with Dr. Arguello and agree with findings and plan as documented in the note. Any exceptions or clarifications are listed here: [None] Documented By: Cheryl Baker MD Resident Activity Tracking <Michael Arguello MD - Last Filed: 03/30/20 07:20> Resident Involvement: Resident Care Provided Care Provided: Adult Hospital Medicine and OB Delivery
[2020-03-30] MEDS: DOCUSATE SODIUM 100 MG CAP PO SCH ×2 (08:05→20:50)
[2020-03-30] MEDS: PRENATAL VITAMIN 1 TAB PO SCH (08:07)
[2020-03-30] MEDS ORDERED: DIPHTHERIA/TETANUS/PERTUSSIS 0.5 ML SYR/VIAL IM ONE (09:00)
[2020-03-30] MEDS: ACETAMINOPHEN 325 MG TAB PO PRN (17:50)
[2020-03-30] MEDS ORDERED: bisacodyL 5 MG TABEC PO SCH (20:00)
[2020-03-31] MEDS: ACETAMINOPHEN 325 MG TAB PO PRN (00:49)
[2020-03-31] MEDS: IBUPROFEN 600 MG TAB PO PRN (06:21)
--- NOTE | 2020-03-31 08:44 | Obstetrical Progress Note ---
Date of Service March 31, 2020 Assessment & Plan (1) Spontaneous vaginal delivery: (2) Encounter for pre-operative examination: Patient doing well. BPS good. Plan d/c. s/s of pet reviewed. to call with concerns. f/u in the office for bp check next weeek. Day #:: 2 Subjective Ambulation: ambulating normally Voiding: no voiding problems Passing Gas:: Yes Diet Tolerance:: regular diet Lochia:: Small Feeding Type:: bottle feeding Physical Exam Constitutional WD/WN, vitals as above Respiratory normal respiratory effort, lungs clear to auscultation Cardiovascular RRR, no murmur, no edema Gastrointestinal (Abdomen) ff/nt 2 below u and deep. Psychiatric A+Ox3, euthymic affect Results & Data ([facility]) Vital Signs (Past 12 Hours) Vital Signs Temp Pulse Resp BP Pulse Ox 03/31/20 00:30 36.6 C 66 18 106/62 98
[2020-03-31] MEDS: PRENATAL VITAMIN 1 TAB PO SCH (09:04)
[2020-03-31] MEDS: DOCUSATE SODIUM 100 MG CAP PO SCH (09:05)
== END 2020-03-31 11:20 | disposition home or self-care (01) | DRG 807 ==
LOC: 4S1 07:41 → 4S2 23:30